=== PATIENT | male | born 1995 | race Caucasian/White ===

== ENCOUNTER 2016-06-24 18:09 | Emergency (ER) | payer OTHER ==
--- NOTE | ~2016-06-24 | CR63 ---
[facility] A Service of [facility] & [facility] RADIOLOGY TEXT RESULTS PATIENT: SOFIA ALONSO LOCATION: CFTX : 89 UNIT #: [id number] AGE: [address]: Mara Perrin SEX: M ORDER DR: [id number] [facility] [address] [place], [place] [address] [id number] E MR#: [id number] Acc #: [id number] NAME: SOFIA ALONSO : 1995 SEX: M STUDY DATE/TIME: 06/24/2016 18:19 UNIT: CFMT ROOM: STUDY DESCRIPTION: CR Chest 2 View Attending Physician: Mara Perrin P.A.-C. Ordering Physician: Mara Perrin P.A.-C. MEDICAL IMAGING REPORT This report is preliminary unless electronic signature is present EXAM 2 views chest, 06/24/2016 HISTORY Fever, cough, congestion, nausea, vomiting, diarrhea, and fatigue x4 days. COMMENT 2 views of the chest are reviewed. No comparison. No pleural effusion. Heart size is normal. Lungs are clear. No pneumothorax. No congestive failure. IMPRESSION Normal chest. Dictated by... Madyson Souza M.D. THIS IS AN ELECTRONICALLY VERIFIED REPORT Madyson Souza M.D. at 06/26/2016 7:46 AM SETH/ashley TD: 06/25/2016 23:31 JOB #: [id number] MEDICAL IMAGING REPORT COPY
[2016-06-24 19:08] LABS: INFLUENZA A NEG (NEG); INFLUENZA B NEG (NEG)
== END 2016-06-24 19:20 | disposition home or self-care (01) ==
LOC: CFTX 18:09
PROVIDERS: Physician Assistant
DX: B34.9 Viral infection, unspecified (principal)
CPT/HCPCS: 71020; 87804; 99283